=== PATIENT | male | born 1960 | race Two or more races ===

== ENCOUNTER 2019-11-09 07:44 | Day surgery (SDC) | payer MEDICAID ==
[2019-11-02 11:09] LABS: BASOPHILS % (AUTO) 0.5 % (0-1); EOSINOPHILS # (AUTO) 0.4 X10'3 (0-0.9); EOSINOPHILS % (AUTO) 4.9 % (0-6); LYMPHOCYTES # (AUTO) 2.5 X10'3 (1.1-4.8); MEAN CORPUSCULAR HEMOGLOBIN 30.2 PG (27.0-31.0); MEAN CORPUSCULAR HGB CONC 32.7 g/dL (33.0-36.5); MEAN CORPUSCULAR VOLUME 92.3 FL (78-98); MEAN PLATELET VOLUME 7.7 FL (7.4-10.4); MONOCYTES # (AUTO) 0.8 X10'3 (0-0.9); MONOCYTES % (AUTO) 9.6 % (2-12); NEUTROPHILS # (AUTO) 4.5 X10'3 (1.8-7.7); PRE OP HEMATOCRIT 47.9 % (42.0-52.0); PRE OP HEMOGLOBIN 15.7 g/dL (14.0-17.9); PRE OP PLATELET COUNT 321 X10'3 (140-440); RED BLOOD COUNT 5.19 X10'6 (4.70-6.10); RED CELL DISTRIBUTION WIDTH 13.7 % (11.5-14.5)
[2019-11-02 11:19] LABS: CLARITY,URINE CLEAR (Clear); COLOR,URINE YELLOW (Yellow); GLUCOSE, URINE NEGATIVE (Neg); KETONES,URINE NEGATIVE (Neg); LEUKOCYTE ESTERASE ,URINE NEGATIVE (Neg); NITRITES, URINE NEGATIVE (Neg); OCCULT BLOOD,URINE NEGATIVE (Neg); PH,URINE 5.5 (4.8-8.0); PROTEIN,URINE NEGATIVE (Neg); UROBILINOGEN,URINE 0.2 E.U/dL (0.2-1.0)
[2019-11-02 11:21] LABS: UA COLLECTION TYPE CLN CATCH MIDSTREAM
[2019-11-02 11:23] LABS: ALBUMIN 3.7 G/DL (3.4-5.0); ALKALINE PHOSPHATASE 74 IU/L (46-116); BLOOD UREA NITROGEN 21 MG/DL (7-18); BUN/CREATININE RATIO 22.3 (5.4-32.0); CHLORIDE 106 MMOL/L (99-107); CREATININE 0.94 MG/DL (0.60-1.10); PRE OP ALT 39 U/L (30-65); PRE OP ANION GAP 5 (8-16); PRE OP AST 31 U/L (10-37); PRE OP BILIRUB, TOTAL 0.6 MG/DL (0.0-1.0); PRE OP GLUCOSE 88 MG/DL (70-104); PRE OP POTASSIUM 4.2 MMOL/L (3.4-5.1); PRE OP SODIUM 141 MMOL/L (135-145); TOTAL CARBON DIOXIDE 29.6 MMOL/L (24-32); TOTAL PROTEIN 7.4 G/DL (6.4-8.2); eGFR 82 ML/MIN
[~2019-11-09] VITALS: Ht 160 cm; Wt 98.4 kg
[2019-11-09] VITALS (11 sets, daily range): BP systolic 94–150; BP diastolic 54–100
[~2019-11-09 07:44] MED LIST: DOCUMENT DATE & TIME OF BETA-BLOCKER PO ONE; LISI40TA4 PO; METO-395 PO; SIMV-42 PO; cefazolin/dext.iso 2gm/50ml 50 ML IV ONE; famotidine 20mg tablet PO ONE; nitroPRUSSIDE in NS 100 ML IV PRN; nitroPRUSSIDE sod inj. 50 MG in dextrose 5%-water 250 ML IV SCH; phenylephrine inj 50 MG in normal saline 250ml IV soln 250 ML IV PRN; ringers solution, lacted 1,000 ML IV SCH
[2019-11-09] MEDS ORDERED: ringers solution, lacted 1,000 ML IV SCH (08:28)
[2019-11-09] MEDS ORDERED: proCHLORperazine 10 MG/2 ml inj IV PRN (08:30)
[2019-11-09] MEDS ORDERED: morphine 2 MG/ML inj. syringe IV PRN (08:30)
[2019-11-09] MEDS ORDERED: ondansetron/PF 4mg/2ml inj IV PRN (08:30)
[2019-11-09] MEDS ORDERED: meperidine/PF 25mg/ml syringe IV PRN ×2 (08:30)
[2019-11-09] MEDS ORDERED: morphine 4 MG/ML inj SYRINge IV PRN (08:30)
[2019-11-09] MEDS ORDERED: BUPIVAcaine/PF 2.5mg/ml (0.25%) 10ml vial ONE (08:41)
[2019-11-09] MEDS ORDERED: metoprolol tartrate 25mg tablet PO ONE (08:55)
[2019-11-09] MEDS ORDERED: sevoflurane 250ml liquid IH ONE (09:24)
[2019-11-09] MEDS ORDERED: fentaNYL/PF 50MCG/1 ML 2ML syringe ONE (09:29)
[2019-11-09] MEDS ORDERED: midazolam 2 mg/2 ml injection ONE (09:29)
[2019-11-09] MEDS ORDERED: propofol inj 20 ML IV ONE (09:31)
[2019-11-09] MEDS ORDERED: rocuronium 10mg/ml inj IV ONE (09:31)
[2019-11-09] MEDS ORDERED: dexamethasone sod phosphate 4mg/ml inj. ONE (09:47)
[2019-11-09] MEDS ORDERED: ePHEDrine 50MG/ML INJ. ONE (09:47)
[2019-11-09] MEDS ORDERED: glycopyrrolate 0.2mg/ml inj ONE (10:32)
[2019-11-09] MEDS ORDERED: neostigmine methylsulfate 1 MG/ML 10ml vial ONE (10:32)
--- NOTE | 2019-11-09 10:43 | NUR ---
Received from OR via [facility], accompanied by Anesthesiologist Socorro and report given by Anesthesiolgist. Mask to 10L sats 100%, VS stable. 20G right forearm with LR at 100cc/hr. Lap sites open to air with dermabond glue CDI. Pulses palpable, no juan catheter, will monitor closely.
[2019-11-09] MEDS: meperidine/PF 25mg/ml syringe IV PRN ×2 (10:54→11:54)
[2019-11-09] MEDS ORDERED: HYDROcodone/acetaminophen 10/325mg tab PO ONE (12:20)
--- NOTE | 2019-11-09 12:30 | NUR ---
Pt ambulated and voided, tolerated food and PO fluids.
--- NOTE | 2019-11-09 12:40 | NUR ---
Surgeon states on phonecall okay to give patient a norco 10 prior to discharge and then patient can resume pain meds prescription from MD office once picked up at pharmacy when home. Pt has 4 hour trip back home so norco to be given prior to journey per Dr Alegre.
--- NOTE | 2019-11-09 13:13 | NUR ---
All belongings verified with patient and returned prior to discharge.
--- NOTE | 2019-11-09 13:13 | NUR ---
Pt discharged to vehicle by wheelchair without incident. Pt IV DC'd, both pt and S/O verbalized understanding of DC instructions. Educated at length about wound care and pain medications. See prior note about pain medications. Script called in by MD office.
[2019-11-09] MEDS ORDERED: albuterol 2.5 MG/3 ML nebule NEB ONE (13:55)
== END 2019-11-09 12:13 | disposition home or self-care (01) ==
LOC: PAS 07:44
PROVIDERS: ATTEND Surgery
DX: K40.20 Bilateral inguinal hernia, without obstruction or gangrene, not specified as recurrent (principal); D17.6 Benign lipomatous neoplasm of spermatic cord; I10 Essential (primary) hypertension; F17.210 Nicotine dependence, cigarettes, uncomplicated; Z79.899 Other long term (current) drug therapy; Z88.8 Allergy status to other drugs, medicaments and biological substances; Z80.41 Family history of malignant neoplasm of ovary
CPT/HCPCS: 36415; 49650; 80053; 81003; 82948; 85025; 93005; C1781; J1100; J2175; J2250; J2370; J2704; J2710; J3010; J3490; J7050; J7060; J7120; U0003; A4215; A4314; A4618; A6258; A7000